=== PATIENT | female | born 1985 | race Two or more races ===

== ENCOUNTER 2019-03-02 08:21 | Outpatient (CLI) | payer OTHER | END 2019-03-02 08:40 | disposition home or self-care (01) | LOC: LAB 08:21 | DX: N70.01 Acute salpingitis (principal) ==

== ENCOUNTER 2019-04-04 06:45 | Outpatient (CLI) | payer OTHER | END 2019-04-04 07:02 | disposition home or self-care (01) | LOC: LAB 06:45 | DX: D64.89 Other specified anemias (principal); N39.0 Urinary tract infection, site not specified; I10 Essential (primary) hypertension ==

== ENCOUNTER 2019-04-10 08:05 | Day surgery (SDC) | payer OTHER ==
[2019-04-10] MEDS ORDERED: PERCOCET 5-3251 EACH PO (14:45)
== END 2019-04-10 17:35 | disposition home or self-care (01) ==
LOC: CIR.AMB 08:05
DX: N70.11 Chronic salpingitis (principal)

== ENCOUNTER 2022-05-18 02:17 | Emergency (ER) | payer OTHER ==
[~2022-05-18] VITALS: Ht 154.9 cm; Wt 55.3 kg
[~2022-05-18 02:17] MED LIST: PERCOCET 5-3251 EACH PO
[2022-05-18] MEDS ORDERED: ESTROGENO (02:20)
== END 2022-05-18 04:19 | disposition left against medical advice (07) ==
LOC: ER 02:17
DX: T78.1XXA Other adverse food reactions, not elsewhere classified, initial encounter (principal)